=== PATIENT | male | born 1985 | race Asian ===

== ENCOUNTER 2017-06-03 08:33 | Emergency (ER) | payer MEDICAID ==
[~2017-06-03] VITALS: Ht 172.7 cm; Wt 103.0 kg
[~2017-06-03 08:33] MED LIST: ALBU6.7H INH; CEPH500C5 PO; CIPR-260 PO; CIPR5DRO EACHEYE
[2017-06-03] MEDS ORDERED: proparacaine 0.5% ophthalmic drops 15ml LEFTEYE ONE (09:10)
[2017-06-03] MEDS ORDERED: ERYT1OIN6 LEFTEYE (09:41)
[2017-06-03] MEDS: erythromycin ophthalmic ointment 1gm tube EACHEYE ONE ×2 (10:07→10:13)
[2017-06-03 10:16] VITALS: BP 133/81
== END 2017-06-03 10:18 | disposition home or self-care (01) ==
LOC: ER 08:34
DX: S05.02XA Injury of conjunctiva and corneal abrasion without foreign body, left eye, initial encounter (principal); Z79.899 Other long term (current) drug therapy; X58.XXXA Exposure to other specified factors, initial encounter; Y93.89 Activity, other specified; Y92.89 Other specified places as the place of occurrence of the external cause; Y99.8 Other external cause status
CPT/HCPCS: 99283

== ENCOUNTER 2017-11-19 17:58 | Emergency (ER) | payer MEDICAID ==
[~2017-11-19] VITALS: Ht 177.8 cm; Wt 109.0 kg
[~2017-11-19 17:58] MED LIST changes: +HYDR25SU48 RC
[2017-11-19 18:30] LABS: CLARITY,URINE CLEAR (Clear); COLOR,URINE YELLOW (Yellow); GLUCOSE, URINE NEGATIVE (Neg); KETONES,URINE NEGATIVE (Neg); LEUKOCYTE ESTERASE ,URINE NEGATIVE (Neg); NITRITES, URINE NEGATIVE (Neg); OCCULT BLOOD,URINE TRACE-INTACT (Neg); PH,URINE 5.5 (4.8-8.0); PROTEIN,URINE NEGATIVE (Neg); UROBILINOGEN,URINE 0.2 E.U/dL (0.2-1.0)
[2017-11-19 18:31] LABS: UA COLLECTION TYPE VOIDED
[2017-11-19 18:34] LABS: BASOPHILS % (AUTO) 0.2 % (0-1); EOSINOPHILS # (AUTO) 0.2 X10'3 (0-0.9); EOSINOPHILS % (AUTO) 1.6 % (0-6); HEMATOCRIT 50.9 % (42.0-52.0); HEMOGLOBIN 17.3 g/dl (14.0-17.9); LYMPHOCYTES # (AUTO) 2.1 X10'3 (1.1-4.8); LYMPHOCYTES % (AUTO) 13.6 % (21-51); MEAN CORPUSCULAR VOLUME 94.2 FL (78-98); MEAN PLATELET VOLUME 8.7 FL (7.4-10.4); MONOCYTES % (AUTO) 6.6 % (2-12); PLATELET COUNT 233 X10'3 (140-440); RED CELL DISTRIBUTION WIDTH 12.8 % (11.5-14.5); WHITE BLOOD COUNT 15.4 X10'3 (4.5-11.0)
[2017-11-19 18:41] LABS: SQUAMOUS EPITHELIAL CELL,UR FEW /LPF (FEW)
[2017-11-19 18:42] LABS: BACTERIA,URINE 1+ /HPF (Neg); RBC,URINE 0-2 /HPF (0-2); WBC,URINE 0-4 /HPF (0-4)
[2017-11-19 18:43] LABS: PROTHROMBIN TIME 10.4 SECONDS (9.0-12.0)
[2017-11-19 18:48] LABS: ALANINE AMINOTRANSFERASE 36 U/L (12-78); ALBUMIN 4.1 G/DL (3.4-5.0); ALKALINE PHOSPHATASE 120 IU/L (46-116); ANION GAP 9 (8-16); ASPARTATE AMINO TRANSFERASE 14 U/L (10-37); BILIRUBIN,TOTAL 0.3 MG/DL (0.1-1.0); BLOOD UREA NITROGEN 14 MG/DL (7-18); BUN/CREATININE RATIO 12.4 (5.4-32.0); CALCIUM 9.3 MG/DL (8.5-10.1); CHLORIDE 104 MMOL/L (99-107); CREATININE 1.13 MG/DL (0.60-1.10); GLUCOSE 87 MG/DL (70-104); POTASSIUM 3.7 MMOL/L (3.5-5.1); SODIUM 141 MMOL/L (135-145); TOTAL CARBON DIOXIDE 27.6 MMOL/L (24-32); TOTAL PROTEIN 8.2 G/DL (6.4-8.2); eGFR 75 ML/MIN
[2017-11-19] MEDS ORDERED: pantoprazole 40mg Tablet.DR PO ONE (20:35)
[2017-11-19] MEDS ORDERED: mag hydrox/Alum hydrox/simeth 30ml oral suspension PO ONE (20:35)
[2017-11-19] MEDS ORDERED: LIDOcaine Viscous 15ml cup PO ONE (20:35)
[2017-11-19] MEDS ORDERED: diphenhydrAMINE 25 MG/10 ML UD oral solution PO ONE (20:45)
[2017-11-19 20:49] LABS: LIPASE 70 U/L (73-393)
[2017-11-19] MEDS ORDERED: PANT-47 PO (21:17)
[2017-11-19 21:30] VITALS: BP 118/70
== END 2017-11-19 21:32 | disposition home or self-care (01) ==
LOC: ER 17:59
DX: R10.13 Epigastric pain (principal); R10.12 Left upper quadrant pain; F17.200 Nicotine dependence, unspecified, uncomplicated; Z79.899 Other long term (current) drug therapy
CPT/HCPCS: 36415; 80053; 81001; 83690; 85025; 85610; 99284; Q0163

== ENCOUNTER 2017-11-21 01:37 | Emergency (ER) | payer MEDICAID ==
[~2017-11-21] VITALS: Ht 170.2 cm; Wt 103.6 kg
[~2017-11-21 01:37] MED LIST changes: +PANT-47 PO
[2017-11-21 02:27] LABS: ALANINE AMINOTRANSFERASE 29 U/L (12-78); ALBUMIN 3.8 G/DL (3.4-5.0); ALKALINE PHOSPHATASE 108 IU/L (46-116); ANION GAP 6 (8-16); ASPARTATE AMINO TRANSFERASE 13 U/L (10-37); BILIRUBIN,TOTAL 0.4 MG/DL (0.1-1.0); BLOOD UREA NITROGEN 13 MG/DL (7-18); BUN/CREATININE RATIO 10.4 (5.4-32.0); CALCIUM 8.6 MG/DL (8.5-10.1); CHLORIDE 103 MMOL/L (99-107); CREATININE 1.25 MG/DL (0.60-1.10); GLUCOSE 91 MG/DL (70-104); POTASSIUM 3.8 MMOL/L (3.5-5.1); SODIUM 139 MMOL/L (135-145); TOTAL CARBON DIOXIDE 29.7 MMOL/L (24-32); TOTAL PROTEIN 7.8 G/DL (6.4-8.2); eGFR 67 ML/MIN
[2017-11-21 03:44] LABS: BASOPHILS % (AUTO) 0.4 % (0-1); EOSINOPHILS # (AUTO) 0.2 X10'3 (0-0.9); EOSINOPHILS % (AUTO) 1.4 % (0-6); HEMATOCRIT 46.2 % (42.0-52.0); LYMPHOCYTES # (AUTO) 1.4 X10'3 (1.1-4.8); LYMPHOCYTES % (AUTO) 10.7 % (21-51); MEAN CORPUSCULAR HEMOGLOBIN 32.2 PG (27.0-31.0); MEAN CORPUSCULAR HGB CONC 34.6 % (33.0-36.5); MEAN PLATELET VOLUME 9.1 FL (7.4-10.4); MONOCYTES # (AUTO) 0.9 X10'3 (0-0.9); NEUTROPHILS # (AUTO) 10.6 X10'3 (1.8-7.7); NEUTROPHILS % (AUTO) 80.5 % (42-75); PLATELET COUNT 205 X10'3 (140-440); RED BLOOD COUNT 4.97 X10'6 (4.70-6.10); RED CELL DISTRIBUTION WIDTH 12.5 % (11.5-14.5); WHITE BLOOD COUNT 13.2 X10'3 (4.5-11.0)
[2017-11-21 03:47] LABS: CLARITY,URINE CLEAR (Clear); COLOR,URINE YELLOW (Yellow); GLUCOSE, URINE NEGATIVE (Neg); KETONES,URINE NEGATIVE (Neg); LEUKOCYTE ESTERASE ,URINE NEGATIVE (Neg); NITRITES, URINE NEGATIVE (Neg); OCCULT BLOOD,URINE TRACE-INTACT (Neg); PROTEIN,URINE TRACE mg/dl (Neg); UROBILINOGEN,URINE 0.2 E.U/dL (0.2-1.0)
[2017-11-21 03:53] LABS: UA COLLECTION TYPE VOIDED
[2017-11-21 03:55] LABS: BACTERIA,URINE NONE SEEN /HPF (Neg); MUCUS STRANDS MODERATE /LPF (Neg); RBC,URINE 0-2 /HPF (0-2); SQUAMOUS EPITHELIAL CELL,UR NONE SEEN /LPF (FEW); WBC,URINE NONE SEEN /HPF (0-4)
[2017-11-21 04:34] LABS: PROTHROMBIN TIME 10.8 SECONDS (9.0-12.0)
[2017-11-21] MEDS ORDERED: morphine 4 MG/ML inj SYRINge IV ONE (05:00)
[2017-11-21] MEDS ORDERED: normal saline 1000ML IV soln IVB ONE (05:00)
[2017-11-21] MEDS ORDERED: iohexol 300mg/ml 100ml inj. ONE (05:11)
[2017-11-21] MEDS ORDERED: HYDR-3965 PO (08:21)
[2017-11-21] MEDS ORDERED: CIPR-230 PO (08:21)
[2017-11-21] MEDS ORDERED: METR500T4 PO (08:21)
[2017-11-21] MEDS ORDERED: SUCR1TAB34 PO (08:26)
[2017-11-21 08:49] VITALS: BP 104/43
== END 2017-11-21 08:53 | disposition home or self-care (01) ==
LOC: ER 01:38
DX: K52.9 Noninfective gastroenteritis and colitis, unspecified (principal); R10.13 Epigastric pain; R10.12 Left upper quadrant pain; R10.31 Right lower quadrant pain; R10.32 Left lower quadrant pain; F17.200 Nicotine dependence, unspecified, uncomplicated; Z79.899 Other long term (current) drug therapy
CPT/HCPCS: 36415; 74177; 80053; 81001; 85025; 85610; 96374; 99285; J2270; J7030; Q9967

== ENCOUNTER 2019-04-10 10:48 | Emergency (ER) | payer MEDICAID ==
[~2019-04-10] VITALS: Ht 177.8 cm; Wt 91.0 kg
[~2019-04-10 10:48] MED LIST changes: -ALBU6.7H INH; +ALBU6.7H9 INH; -CEPH500C5 PO; -HYDR25SU48 RC; +SUCR1TAB34 PO
[2019-04-10 11:23] LABS: BASOPHILS % (AUTO) 0.5 % (0-1); EOSINOPHILS # (AUTO) 0.2 X10'3 (0-0.9); EOSINOPHILS % (AUTO) 2.2 % (0-6); HEMATOCRIT 48.9 % (42.0-52.0); HEMOGLOBIN 17.1 g/dl (14.0-17.9); LYMPHOCYTES # (AUTO) 2.1 X10'3 (1.1-4.8); LYMPHOCYTES % (AUTO) 29.3 % (21-51); MEAN CORPUSCULAR HEMOGLOBIN 32.7 PG (27.0-31.0); MEAN CORPUSCULAR HGB CONC 34.9 g/dL (33.0-36.5); MEAN CORPUSCULAR VOLUME 93.7 FL (78-98); MEAN PLATELET VOLUME 8.9 FL (7.4-10.4); MONOCYTES # (AUTO) 0.6 X10'3 (0-0.9); MONOCYTES % (AUTO) 8.4 % (2-12); NEUTROPHILS # (AUTO) 4.2 X10'3 (1.8-7.7); NEUTROPHILS % (AUTO) 59.6 % (42-75); PLATELET COUNT 195 X10'3 (140-440); RED BLOOD COUNT 5.22 X10'6 (4.70-6.10); RED CELL DISTRIBUTION WIDTH 12.9 % (11.5-14.5)
[2019-04-10 11:37] LABS: ALANINE AMINOTRANSFERASE 49 U/L (12-78); ALBUMIN 3.9 G/DL (3.4-5.0); ALBUMIN/GLOBULIN RATIO 1.1 (1.1-1.5); ALKALINE PHOSPHATASE 90 IU/L (46-116); ANION GAP 9 (8-16); ASPARTATE AMINO TRANSFERASE 23 U/L (10-37); BILIRUBIN,TOTAL 0.7 MG/DL (0.1-1.0); BLOOD UREA NITROGEN 15 MG/DL (7-18); BUN/CREATININE RATIO 12.9 (5.4-32.0); CALCIUM 8.8 MG/DL (8.5-10.1); CHLORIDE 106 MMOL/L (99-107); CREATININE 1.16 MG/DL (0.60-1.10); GLUCOSE 138 MG/DL (70-104); POTASSIUM 3.4 MMOL/L (3.5-5.1); SODIUM 143 MMOL/L (135-145); TOTAL CARBON DIOXIDE 27.6 MMOL/L (24-32); TOTAL PROTEIN 7.6 G/DL (6.4-8.2); eGFR 72 ML/MIN
[2019-04-10 12:46] VITALS: BP 110/73
== END 2019-04-10 12:48 | disposition home or self-care (01) ==
LOC: ER 10:49
DX: R07.89 Other chest pain (principal); F17.200 Nicotine dependence, unspecified, uncomplicated; F10.99 Alcohol use, unspecified with unspecified alcohol-induced disorder; Z79.899 Other long term (current) drug therapy; Y90.9 Presence of alcohol in blood, level not specified
CPT/HCPCS: 36415; 71045; 80053; 84484; 85025; 93005; 99284

== ENCOUNTER 2019-08-08 21:21 | Emergency (ER) | payer MEDICAID ==
[~2019-08-08] VITALS: Ht 177.8 cm; Wt 109.1 kg
[2019-08-08 21:22] VITALS: BP 138/95
[2019-08-08] MEDS ORDERED: PRED20TA PO (21:46)
[2019-08-08] MEDS ORDERED: BENZ-16 PO (21:46)
== END 2019-08-08 21:52 | disposition home or self-care (01) ==
LOC: ER 21:21
DX: L25.9 Unspecified contact dermatitis, unspecified cause (principal); J06.9 Acute upper respiratory infection, unspecified; R05 Cough; R09.89 Other specified symptoms and signs involving the circulatory and respiratory systems; F17.200 Nicotine dependence, unspecified, uncomplicated; Z72.89 Other problems related to lifestyle; Z79.2 Long term (current) use of antibiotics; Z79.899 Other long term (current) drug therapy
CPT/HCPCS: 99283

== ENCOUNTER 2020-04-10 10:07 | Emergency (ER) | payer MEDICAID ==
[~2020-04-10] VITALS: Ht 177.8 cm; Wt 113.0 kg
[2020-04-10 10:12] VITALS: BP 136/92
== END 2020-04-10 11:10 | disposition home or self-care (01) ==
LOC: ER 10:08
DX: G47.00 Insomnia, unspecified (principal); H57.89 Other specified disorders of eye and adnexa; Z72.89 Other problems related to lifestyle; Z87.891 Personal history of nicotine dependence; Z79.2 Long term (current) use of antibiotics; Z79.899 Other long term (current) drug therapy
CPT/HCPCS: 99282

== ENCOUNTER 2023-07-28 13:46 | Emergency (ER) | payer MEDICAID ==
[~2023-07-28] VITALS: Ht 177.8 cm; Wt 118.6 kg
[~2023-07-28 13:46] MED LIST changes: +ALBU6.7H14 INH; -ALBU6.7H9 INH
[2023-07-28 14:00] VITALS: BP 139/88; PULSE 94; RESP 16; TEMP 98.7; O2SAT 96
[2023-07-28] MEDS ORDERED: NEOM10SO7 RIGHT EAR (15:15)
== END 2023-07-28 15:24 | disposition home or self-care (01) ==
LOC: ER 13:47
DX: H60.8X1 Other otitis externa, right ear (principal); Z72.89 Other problems related to lifestyle; Z79.899 Other long term (current) drug therapy; Z79.2 Long term (current) use of antibiotics
CPT/HCPCS: 99283

== ENCOUNTER 2024-05-01 08:20 | Emergency (ER) | payer MEDICAID ==
[~2024-05-01] VITALS: Ht 177.8 cm; Wt 119.5 kg
[~2024-05-01 08:20] MED LIST changes: +NEOM10SO7 RIGHT EAR
[2024-05-01] MEDS: HYDROcodone/acetaminophen 5mg/325mg tablet PO ONE (09:10)
[2024-05-01] MEDS ORDERED: dexamethasone 4mg tablet PO ONE (09:20)
[2024-05-01] MEDS: DEXAMETHASONE 6 MG TABLET PO ONE (09:25)
[2024-05-01] MEDS: dexamethasone 4mg tablet PO ONE (09:25)
[2024-05-01] MEDS ORDERED: CIPR7.5D7 LEFT EAR (09:32)
[2024-05-01 09:37] VITALS: BP 131/86; PULSE 88; RESP 16; TEMP 98.5; O2SAT 94
== END 2024-05-01 09:38 | disposition home or self-care (01) ==
LOC: ER 08:21
DX: H60.92 Unspecified otitis externa, left ear (principal); Z79.899 Other long term (current) drug therapy; Z79.82 Long term (current) use of aspirin; Z87.19 Personal history of other diseases of the digestive system
CPT/HCPCS: 99284; J8540

== ENCOUNTER 2024-06-08 20:35 | Emergency (ER) | payer MEDICAID ==
[~2024-06-08] VITALS: Ht 177.8 cm; Wt 109.1 kg
[~2024-06-08 20:35] MED LIST changes: +CIPR7.5D7 LEFT EAR
[2024-06-08] MEDS ORDERED: ALBU18HF2 INH (22:31)
[2024-06-08] MEDS ORDERED: IBUP-1984 PO (22:31)
[2024-06-08] MEDS ORDERED: BENZ-38 PO (22:31)
[2024-06-08] MEDS: acetaminophen 325mg tablet PO ONE (22:33)
[2024-06-08] MEDS: benzonatate 100mg capsule PO ONE (22:33)
[2024-06-08] MEDS: ketorolac trometh 15mg/ml vial 15 MG/ML ML IM ONE (22:33)
[2024-06-08] MEDS ORDERED: AZIT-164 PO (22:51)
[2024-06-08 22:59] VITALS: BP 124/65; PULSE 92; RESP 18; TEMP 98.6; O2SAT 98
== END 2024-06-08 23:00 | disposition home or self-care (01) ==
LOC: ER 20:36
DX: J22 Unspecified acute lower respiratory infection (principal); Z79.899 Other long term (current) drug therapy; Z72.89 Other problems related to lifestyle; Z20.822 Contact with and (suspected) exposure to COVID-19
CPT/HCPCS: 36415; 71045; 87502; 87503; 87811; 96372; 99284; J1885

== ENCOUNTER 2024-08-01 09:34 | Emergency (ER) | payer MEDICAID ==
[~2024-08-01] VITALS: Ht 177.8 cm; Wt 96.6 kg
[~2024-08-01 09:34] MED LIST changes: +ALBU18HF2 INH
[2024-08-01 09:46] VITALS: BP 134/86; PULSE 90; RESP 15; TEMP 99.5; O2SAT 97
[2024-08-01] MEDS ORDERED: ERYT1OIN6 EACHEYE (10:05)
== END 2024-08-01 10:20 | disposition home or self-care (01) ==
LOC: ER 09:34
DX: H10.89 Other conjunctivitis (principal); Z79.899 Other long term (current) drug therapy; Z72.89 Other problems related to lifestyle
CPT/HCPCS: 99283

== ENCOUNTER 2024-09-25 14:46 | Emergency (ER) | payer MEDICAID ==
[~2024-09-25] VITALS: Ht 177.8 cm; Wt 119.0 kg
--- NOTE | 2024-09-25 15:32 | Physician Documentation ---
History of Present Illness ~ Chief Complaint: Back Pain Stated Complaint: LOWER BACK PAIN Time Seen by MD: 15:07 Primary Medical Doctor: none HPI This is a 39-year-old male who presents with left-sided lumbar back pain onset this morning while getting out of bed, patient reports no radiation of the pain and movement and standing makes the pain worse. Patient reports no history of back pain. Patient reports no history of cancer, tuberculosis, or IV drug use. Patient reports no recent trauma, fever, night sweats, unexpected weight loss, new or progressively worsening numbness or or weakness. Medication Reconciliation Allergies: Coded Allergies: No Known Allergies (Unverified , 06/08/24) Scheduled Albuterol Sulfate (Ventolin Hfa), 2 PUFFS INH Q4HPRN Ciprofloxacin HCl (Cipro), 1 TABLET PO BID Ciprofloxacin HCl (Ciloxan), 1 DROP EACHEYE QID Ciprofloxacin HCl/Dexameth (Ciproflox-Dexameth Otic Susp), 4 DROP LEFT EAR BID Cyclobenzaprine* (Cyclobenzaprine*), 1 TAB PO TID Ibuprofen (Ibuprofen), 1 TAB PO Q8H Lidocaine (Lidoderm), 1 PATCH TOP DAILY Neomy Sulf/Polymyx B Sulf/Hc (Cortisporin Otic Solution), 4 DROP RIGHT EAR Q6H Pantoprazole Sodium (PROTONIX tablet), 1 TAB PO DAILY Sucralfate (Carafate), 1 TAB PO Q6H Scheduled PRN Albuterol Sulfate (Proventil Hfa), 2 PUFFS INH QID PRN for cough or wheeze Past Medical History Past Medical History: Hemorrhoids Past Surgical History: no surgical history Alcohol Use: Occasionally Drug Use: none Lives In: Home Occupation: employed Review of Systems ROS Low back pain as stated above in the HPI, otherwise all systems are reviewed and negative. Physical Exam Physical Exam Vital Signs: Temperature: 98.4, Source: Temporal, Heart Rate: 82, Respiratory Rate: 18, BP: 129/82, Pulse Oximetry: 95, Weight: 119.000 Oxygen Flow Rate: 0 Physical Exam VITALS: Reviewed and as above. GENERAL: Alert, nontoxic appearing, no apparent distress. RESPIRATORY: No increased work of breathing, no respiratory distress, speaking in full clear sentences BACK: No central spinal tenderness, tenderness to palpation of left lumbar back Progress Results/Orders Results/Orders Completed Orders - ABRAHAM,TERA W DIRECTOR OF ORTHOPEDICS Ketorolac Trometh 15mg/Ml Vial (Toradol (09/25/24 15:35) Cyclobenzaprine Tablet (Flexeril Tablet) (09/25/24 15:35) Lidocaine 5% Patch (Lidoderm 5% Patch) (09/25/24 15:35) Vital Signs 09/25/24 09/25/24 09/25/24 15:02 15:43 15:56 Temp 98.4 98.4 Pulse 82 83 Resp 18 16 16 B/P (MAP) 129/82 122/70 Pulse Ox 95 97 O2 Flow Rate 0 Medical Decision Making Findings This is an otherwise healthy, well appearing 39-year-old male presenting with left-sided nonradiating low back pain. Patients does not have any high-risk features on history, no trauma, IVDA, cancer, significant weight loss or history of TB, and the patient has a normal neurologic exam without fever, severe or progressive neurologic deficits, new or worsening urinary retention, urinary/stool incontinence or decreased perineal sensation; therefore imaging was not indicated in the ED. I doubt spinal fracture, epidural hematoma, epidural abscess, unstable spinal pathology, emergent renal or aortic pathology, or spinal cord compression. Patient medicated for pain in department. Remainder of physical exam benign patient vital signs stable, patient appropriate for outpatient follow up. Upon discharge, the patients pain was controlled, and the patient was ambulatory without a risk of falling. Return precautions were discussed including worsening pain, new/worsening weakness/numbness, difficulty urinating, or incontinence. Differential Dx:Considerations: Include: Appendicitis, Fracture, Musculoskele payton pain, Pancreatitis, Pyelonephritis, Renal infarction, Strain, Urinary obstruction, Urolithiasis, Urinary tract infection, Other (Cauda equina, spinal epidural abscess,) Departure Disposition: HOME / SELF CARE / HOMELESS Impression: Primary Impression: Low back pain Qualified Codes: M54.50 - Low back pain, unspecified Condition: Improved Discharge Instructions: Back Exercises, Acute Back Pain, Adult Additional Instructions: Please use the medications provided to help with your low back pain, please see the attached home care instructions. Please follow up with your primary care pr ovider in the next few days. Please return to the emergency department for any new or worsening concerning symptoms including but not limited to if you develop a fever, have new or worsening weakness in your legs, or if you lose control of your bowel or bladder. Do not take the ibuprofen for the next 12 hours as you received a Toradol injection in the emergency department which replaces NSAIDs such as ibuprofen and naproxen. Take ibuprofen with food to avoid stomach upset. Do not use the Flexeril with alcohol or opioid cleaning medications, do not drive or operate heavy machinery while taking Flexeril Lidoderm patches can be on for up to 12 hours allow at least 12 hours between applications, do not apply heat packs over Lidoderm patches. Referrals: NO PRIMARY CARE PROVIDER (PCP) Prescriptions Ibuprofen (Ibuprofen) 800 Mg Tablet 1 TAB PO Q8H for pain for 10 Days, #30 TAB 0 Refills Prov: TERA ROSARIO 09/25/24 Lidocaine (Lidoderm) 5 % Adh..patch 1 PATCH TOP DAILY for 10 Days, #10 PATCH 0 Refills may wear up to 12 hours Prov: TERA ROSARIO 09/25/24 Cyclobenzaprine* (Cyclobenzaprine*) 10 Mg Tablet 1 TAB PO TID, #15 TAB Prov: TERA ROSARIO 09/25/24 Education Educated: Patient Educated regarding: diagnosis, treatment, prognosis, need for follow up Signature Scribe Signature: No scribe Attestation: The note accurately reflects work and decisions made by me.NACHO Ferris 09/26/24 02:19 TERA ROSARIO September 25, 2024 15:32
[2024-09-25] MEDS ORDERED: IBUP-1986 PO (15:36)
[2024-09-25] MEDS ORDERED: CYCL-1 PO (15:36)
[2024-09-25] MEDS ORDERED: LIDO700A32 TOP (15:36)
[2024-09-25] MEDS: cyclobenzaprine 10mg tablet PO ONE (15:42)
[2024-09-25] MEDS: ketorolac trometh 15mg/ml vial 15 MG/ML ML IM ONE (15:43)
[2024-09-25] MEDS: LIDOcaine 5% patch TP ONE (15:44)
[2024-09-25 15:56] VITALS: BP 122/70; PULSE 83; RESP 16; TEMP 98.4; O2SAT 97
== END 2024-09-25 15:54 | disposition home or self-care (01) ==
LOC: ER 14:47
DX: M54.50 Low back pain, unspecified (principal); Z79.899 Other long term (current) drug therapy; Z72.89 Other problems related to lifestyle
CPT/HCPCS: 96372; 99283; J1885